=== PATIENT | female | born 1970 | race African-American/Black ===

== ENCOUNTER 2017-05-02 14:49 | Emergency (ER) | payer MEDICAID ==
[~2017-05-02] VITALS: Ht 167.6 cm; Wt 75.0 kg
[2017-05-02] MEDS ORDERED: HYDROCODONE/ACETAMINOPHEN 5/325MG TABLET PO ONE (16:00)
[2017-05-02] MEDS ORDERED: KETOROLAC 30MG/ML VIAL IM ONE (18:30)
[2017-05-02 19:20] VITALS: BP 126/59
== END 2017-05-02 19:27 | disposition home or self-care (01) ==
LOC: ER 15:15
DX: S90.00XA Contusion of unspecified ankle, initial encounter (principal); S90.31XA Contusion of right foot, initial encounter; F31.9 Bipolar disorder, unspecified; W01.0XXA Fall on same level from slipping, tripping and stumbling without subsequent striking against object, initial encounter; Y93.89 Activity, other specified; Y99.8 Other external cause status; Y92.89 Other specified places as the place of occurrence of the external cause
CPT/HCPCS: 73610; 73630; 96372; 99284; J1885

== ENCOUNTER 2024-06-05 15:47 | Emergency (ER) | payer OTHER ==
[~2024-06-05] VITALS: Ht 157.5 cm; Wt 87.0 kg
[~2024-06-05 15:47] MED LIST: DOCU-138 MT; LEVO-65 MT; METR-167 MT; POLY17PO3 MT; SENN-371 MT
[2024-06-05 16:17] VITALS: O2SAT 99
[2024-06-05] MEDS: ACETAMINOPHEN 500MG TABLET PO ONE (18:02)
[2024-06-05] MEDS ORDERED: GABA-529 MT (19:25)
[2024-06-05 19:39] VITALS: BP 159/89; PULSE 80; RESP 18; TEMP 36.89184; O2SAT 99
== END 2024-06-05 19:40 | disposition home or self-care (01) ==
LOC: ER 15:47
DX: M79.601 Pain in right arm (principal); M79.10 Myalgia, unspecified site; D64.9 Anemia, unspecified; Z88.0 Allergy status to penicillin; Z90.49 Acquired absence of other specified parts of digestive tract; Z98.890 Other specified postprocedural states
CPT/HCPCS: 73030; 82962; 99283